=== PATIENT | male | born 2000 | race Two or more races ===

== ENCOUNTER 2021-11-28 15:41 | Emergency (ER) | payer OTHER ==
[~2021-11-28] VITALS: Ht 170.2 cm; Wt 64.0 kg
--- NOTE | 2021-11-28 15:41 | NUR ---
SHANNAN RA 89 FROM A [facility]UG [facility]. DUE TO A SYNCOPAL EPISODE,ADMIT TO USING [facility] EARLIER. TO ER BED 3, HOOKED TO MONITOR, VSS. CHANGED TO HOS GOWN, WARM BLANKET PROVIDED. AAOx4. AWAITING MD MANNING
--- NOTE | 2021-11-28 15:47 | NUR ---
DR MCCLAIN AT BEDSIDE
[2021-11-28] MEDS ORDERED: IV NS 0.9% 1,000 ML BAG IV ONE (16:00)
[2021-11-28 16:17] LABS: BASOPHILS % (AUTO) 0.2 % (0.0-2.0); EOSINOPHILS % (AUTO) 0.1 % (0.0-6.0); HEMATOCRIT 39 % (39-51); LYMPHOCYTES # (AUTO) 1.2 K/uL (0.8-4.8); LYMPHOCYTES % (AUTO) 14.7 % (20.0-44.0); MEAN CORPUSCULAR HGB CONC 33 g/dl (31.0-36.0); MEAN CORPUSCULAR VOLUME 87 fL (80-96); MONOCYTES # (AUTO) 0.4 K/uL (0.1-1.30); MONOCYTES % (AUTO) 5.3 % (2.0-12.0); NEUTROPHILS # (AUTO) 6.4 K/uL (1.8-8.9); NEUTROPHILS % (AUTO) 79.7 % (43.0-81.0); PLATELET COUNT (AUTO) 331 K/uL (150-450); RED BLOOD CELL COUNT(AUTO) 4.49 MIL/uL (4.5-6.0); WHITE BLOOD COUNT (AUTO) 8.1 K/uL (4.3-11.0)
[2021-11-28 17:12] LABS: ALANINE AMINOTRANSFERASE 39 U/L (12-78); ALBUMIN 3.8 g/dL (3.4-5.0); ALKALINE PHOSPHATASE 67 U/L (46-116); ASPARTATE AMINOTRANSFERASE 15 U/L (15-37); BILIRUBIN,DIRECT 0.1 mg/dL (0.0-0.2); BILIRUBIN,TOTAL 0.3 mg/dL (0.2-1.0); CALCIUM, SERUM 8.8 mg/dL (8.5-10.1); CARBON DIOXIDE 23 mmol/L (21-32); CHLORIDE 102 mmol/L (98-107); CREATININE 0.9 mg/dL (0.6-1.3); GLUCOSE 150 mg/dL (74-106); POTASSIUM 3.5 mmol/L (3.5-5.1); SODIUM SERUM 138 mmol/L (136-145); TOTAL PROTEIN, SERUM 7.4 g/dL (6.4-8.2); UREA NITROGEN, BLOOD 14 mg/dL (7-18)
--- NOTE | 2021-11-28 17:38 | NUR ---
REFUSED TO SIGN DC PAPER
--- NOTE | 2021-11-28 17:38 | NUR ---
IV removed. Catheter intact and site benign. Pressure and 4x4 applied to site. No bleeding noted.Patient discharged to home in stable condition. Written and verbal after care instructions given. Patient verbalizes understanding of instruction.
[2021-11-28 17:40] VITALS: BP 114/65
== END 2021-11-28 17:41 | disposition home or self-care (01) ==
LOC: ER 15:49
DX: R55 Syncope and collapse (principal); R42 Dizziness and giddiness; F17.200 Nicotine dependence, unspecified, uncomplicated
CPT/HCPCS: 99284; 96360; 93005; 85025; 80048; 80076; 36415; 84484; 85730; J7030

== ENCOUNTER 2021-11-28 20:37 | Emergency (ER) | payer OTHER ==
--- NOTE | 2021-11-28 21:55 | NUR ---
PT CAME BACK TO JUST ASK FOR HIS RECORD FROM EARLIER VISIT. PT WAS NOT TRIAGED.
== END 2021-11-28 21:55 | disposition home or self-care (01) ==
LOC: ER 20:44
DX: Z53.21 Procedure and treatment not carried out due to patient leaving prior to being seen by health care provider (principal); R55 Syncope and collapse